=== PATIENT | female | born 1960 | race Caucasian/White ===

== ENCOUNTER 2018-04-20 17:11 | Emergency (ER) | payer MEDICAID ==
[~2018-04-20] VITALS: Ht 170.2 cm; Wt 74.8 kg
[2018-04-20] MEDS ORDERED: HYDR12.5 PO (17:24)
--- NOTE | 2018-04-20 17:24 | NUR ---
Patient said ,"I can't pee right now. I will need water." NPO for now until seen by .
--- NOTE | 2018-04-20 17:28 | NUR ---
MD is at bedside evaluating the patient.
--- NOTE | 2018-04-20 17:35 | NUR ---
Iced water in a pitcher was given to patient.
[2018-04-20] MEDS ORDERED: IBUPROFEN 800 MG TABLET ONE (17:38)
[2018-04-20] MEDS ORDERED: IBUPROFEN 800 MG TABLET PO ONE (17:45)
[2018-04-20 18:11] LABS: *BILIRUBIN,URIN NEGATIVE (NEGATIVE); *BLOOD, URINE 2+ (NEGATIVE); *CLARITY,URINE CLEAR (CLEAR); *COLOR,URINE YELLOW (YELLOW); *KETONES,URINE NEGATIVE (NEGATIVE); *PROTEIN,URINE NEGATIVE (NEGATIVE); *UROBILINOGEN,URINE 0.2 E.U./dl (NORMAL); LEUKOCYTE ESTERASE ,URINE 2+ (NEGATIVE); NITRITE, URINE NEGATIVE (NEGATIVE); PH,URINE 5.5 (5.0-8.0); UGLUCOSE NEGATIVE (NEGATIVE)
[2018-04-20 18:13] LABS: BACTERIA,URINE FEW /HPF (NONE SEEN); SQUAMOUS EPITHELIAL CELL,UR FEW /HPF (NONE SEEN); WBC,URINE 50-80 /HPF (0-3)
[2018-04-20] MEDS ORDERED: SULFAMETH/TRIMETH 800/160 MG TABLET ONE (18:27)
--- NOTE | 2018-04-20 18:27 | NUR ---
Patient discharged to home in stable conditon & brisk steady gait. Written and verbal after care instructions given to patient. Patient verbalizes understanding of instructions.
[2018-04-20] MEDS ORDERED: SULFAMETH/TRIMETH 800/160 MG TABLET PO ONE (18:30)
== END 2018-04-20 18:27 | disposition home or self-care (01) ==
LOC: ER 17:26
DX: N39.0 Urinary tract infection, site not specified (principal); Z79.899 Other long term (current) drug therapy
CPT/HCPCS: 81001; 99283; A4663